=== PATIENT | male | born 1970 | race Caucasian/White ===

== ENCOUNTER 2018-07-28 03:41 | Emergency (ER) | payer SELFPAY ==
[~2018-07-28] VITALS: Ht 180.3 cm; Wt 99.8 kg
[2018-07-28 03:44] VITALS: Ht 180.3 cm; Wt 99.8 kg
[2018-07-28 06:03] VITALS: BP 128/73
== END 2018-07-28 06:03 | disposition home or self-care (01) ==
LOC: ED 03:41
DX: S00.531A Contusion of lip, initial encounter (principal); I10 Essential (primary) hypertension; E11.9 Type 2 diabetes mellitus without complications; Y04.0XXA Assault by unarmed brawl or fight, initial encounter; Y93.89 Activity, other specified; Y92.89 Other specified places as the place of occurrence of the external cause; Y99.8 Other external cause status
CPT/HCPCS: J1885

== ENCOUNTER 2018-07-28 07:30 | Emergency (ER) | payer SELFPAY ==
[~2018-07-28] VITALS: Ht 175.3 cm; Wt 100.7 kg
[2018-07-28 07:37] VITALS: BP 135/94; Ht 175.3 cm; Wt 100.7 kg
== END 2018-07-28 09:10 | disposition home or self-care (01) ==
LOC: ED 07:30
DX: L50.9 Urticaria, unspecified (principal); S50.861A Insect bite (nonvenomous) of right forearm, initial encounter; S00.531A Contusion of lip, initial encounter; E11.9 Type 2 diabetes mellitus without complications; I10 Essential (primary) hypertension; E66.9 Obesity, unspecified; Z68.32 Body mass index [BMI] 32.0-32.9, adult; W57.XXXA Bitten or stung by nonvenomous insect and other nonvenomous arthropods, initial encounter; Y04.0XXA Assault by unarmed brawl or fight, initial encounter; Y93.89 Activity, other specified; Y92.89 Other specified places as the place of occurrence of the external cause; Y99.8 Other external cause status
CPT/HCPCS: J7510; Q0163